=== PATIENT | female | born 1980 | race Caucasian/White ===

== ENCOUNTER 2021-06-27 14:48 | Inpatient (IN) | payer OTHER, SELFPAY ==
[2021-06-27] VITALS (57 sets, daily range): BP systolic 114–172; BP diastolic 51–106; PULSE 64–99; RESP 18; TEMP 36.4–36.9; BMI 42.6
--- NOTE | 2021-06-27 09:46 | OBADM ---
This patient, Ambreen Espitia, admitted to the OB room Labor/Delivery/Recovery 104 for observation of elevated bp's during NST in office. Patient/family oriented to hospital policies and general routines including ID bracelet, bed and alarms, visiting hours, pain management, procedures, bathroom and other care routines, personal items, smoking policy, room service/diet, and visiting hours. Patient/Family are encouraged to report perceived risks to care and to ask questions if they do not understand what they are told or what they should do.
[2021-06-27 10:24] LABS: Basophils Percent Auto 0.3 % (0.2-1.2); Eosinophils Absolute Auto 0.1 K/mm3 (0-0.3); Eosinophils Percent Auto 0.6 % (0-4.4); Hemoglobin 12.6 g/dL (12.0-15.0); Immature Granulocyte Absolute 0.08 K/mm3 (0.00-0.031); Immature Granulocyte Percent A 0.8 % (0-0.5); Lymphocytes Absolute Auto 1.09 K/mm3 (0.9-3.2); Lymphocytes Percent Auto 11.2 % (18.3-44.2); Mean Corpuscular HGB Conc 33.2 g/dl (32-36); Mean Corpuscular Hemoglobin 29.2 pg (26-34); Mean Platelet Volume 11.4 fl (7.4-10.4); Monocytes Absolute Auto 0.6 K/mm3 (0.1-0.6); Monocytes Percent Auto 6.2 % (2.6-8.5); Neutrophils Absolute Auto 7.8 K/mm3 (1.3-6.7); Neutrophils Percent Auto 80.9 % (45.5-73.1); Platelet Count Result 186 k/mm3 (150-375); Red Blood Count 4.32 M/mm3 (4.2-5.4); White Blood Count 9.7 K/mm3 (4.5-10.0)
[2021-06-27 10:36] LABS: Alanine Aminotransferase 11 U/L (4-35); Albumin Level 3.4 g/dL (3.5-5.1); Alkaline Phosphatase 103 U/L (38-126); Anion Gap 5 mmol/L (8-16); Aspartate Amino Transferase 20 U/L (14-36); Bilirubin,Total 0.2 mg/dL (0.2-1.3); Blood Urea Nitrogen 7 mg/dL (7-17); Calcium 8.6 mg/dL (8.4-10.2); Carbon Dioxide 18 mmol/L (22-30); Chloride 112 mmol/L (98-107); Estimated Glomerular Filt Rate > 60; Glucose 83 mg/dL (65-110); Potassium 4.2 mmol/L (3.4-5.0); Sodium 135 mmol/L (137-145)
[2021-06-27 10:41] LABS: Add Urine Microscopic? YES; Appearance Urine Cloudy (Clear); Bacteria Urine Trace /hpf; Bilirubin Urine Negative (Negative); Blood Urine Negative (Negative); Color Urine Yellow (Yellow); Glucose Urine UA Negative (Negative); Ketones Urine Trace mg/dL (Negative); Leukocyte Esterase Ur Trace LEU/UL (NEGATIVE); Nitrate Urine Negative (Negative); Protein Urine 1+ mg/dL (Negative); RBC Urine 0-2 /hpf (0-2); Specific Grav Ur 1.026 (1.001-1.035); Squamous Epithelial Cell Urine Many /hpf (Few); Urobilinogen Urine Negative mg/dL (<2.0); WBC Urine 0-3 /hpf (0-3)
--- NOTE | 2021-06-27 11:06 | PC.NURSE ---
Lab called, awaiting urine p/c ratio results to be able to call MD for further orders. Lab states results should be released soon.
[2021-06-27 11:09] LABS: Creatinine Urine 169.6 mg/dL; Total Protein Urine Random 15 mg/dL; Ur Ttl Prot Creatinine Ratio 0.09 mg/mg (0-0.20)
[2021-06-27] MEDS: NIFEdipine 30 MG TAB.ER.24 PO (11:29)
[2021-06-27] MEDS: LABETALOL HCL 100 MG TABLET 200 MG PO ×2 (13:10→20:43)
[2021-06-27 15:57] LABS: Basophils Percent Auto 0.2 % (0.2-1.2); Eosinophils Absolute Auto 0.1 K/mm3 (0-0.3); Eosinophils Percent Auto 0.5 % (0-4.4); Hematocrit 37.8 % (37.0-47.0); Hemoglobin 12.4 g/dL (12.0-15.0); Immature Granulocyte Absolute 0.09 K/mm3 (0.00-0.031); Immature Granulocyte Percent A 0.9 % (0-0.5); Lymphocytes Absolute Auto 1.04 K/mm3 (0.9-3.2); Lymphocytes Percent Auto 10.6 % (18.3-44.2); Mean Corpuscular HGB Conc 32.8 g/dl (32-36); Mean Corpuscular Hemoglobin 29.3 pg (26-34); Mean Corpuscular Volume 89.4 fl (80-100); Mean Platelet Volume 11.3 fl (7.4-10.4); Monocytes Absolute Auto 0.5 K/mm3 (0.1-0.6); Monocytes Percent Auto 4.7 % (2.6-8.5); Neutrophils Absolute Auto 8.1 K/mm3 (1.3-6.7); Neutrophils Percent Auto 83.1 % (45.5-73.1); Platelet Count Result 170 k/mm3 (150-375); Red Blood Count 4.23 M/mm3 (4.2-5.4); Red Cell Distribution Width 14.3 % (11.5-14.5); White Blood Count 9.8 K/mm3 (4.5-10.0)
[2021-06-27] MEDS: DINOPROSTONE 10 MG VAG INSERT VAGINAL (16:02)
--- NOTE | 2021-06-27 16:16 | LDADM ---
This patient, Ambreen Espitia, was admitted to Labor/Delivery/Recovery 104 on 06/27/21 at 14:48. Plans for labor, pain management and were discussed with patient. Patient/family oriented to hospital policies and general routines including ID bracelet, bed and alarms, visiting hours, pain management, procedures, bathroom and other care routines, personal items, smoking policy, room service/diet and guest tray routines, security routines, and visiting hours. Patient/Family are encouraged to report perceived risks to care and to ask questions if they do not understand what they are told or what they should do. See OBIX for further documentation.
[2021-06-27 18:13] LABS: Glucose Point of Care 93 mg/dl (65-105)
[2021-06-27 22:55] LABS: Glucose Point of Care 98 mg/dl (65-105)
[2021-06-28] VITALS (72 sets, daily range): BP systolic 112–157; BP diastolic 49–107; PULSE 66–96; TEMP 36.2–36.6; O2SAT 100
[2021-06-28] MEDS: LABETALOL HCL 100 MG TABLET 200 MG PO ×4 (02:52→21:45)
[2021-06-28 03:08] LABS: Glucose Point of Care 79 mg/dl (65-105)
[2021-06-28] MEDS: OXYTOCIN 30 UNITS/NS 500 ML 30 UNITS/500 ML BAG IV CONT (04:41)
[2021-06-28] MEDS: LACTATED RINGERS 1,000 ML 125 ML IV CONT ×3 (04:41→23:18)
[2021-06-28] MEDS: AMPICILLIN 2 GM/NS 100 ML 2 GM/100 ML BAG IVPB (04:41)
[2021-06-28 06:54] LABS: Glucose Point of Care 103 mg/dl (65-105)
--- NOTE | 2021-06-28 07:31 | WPDOBADMIT ---
Obstetrics - Admit Note Admission Note: record reviewed. No pertinent additions to the history and/or any subsequent changes in the physical findings that are not consistent with the expected course of the were found. Additions to the history and/or subsequent changes in the physical findings follow. Here yesterday from NST where BP noted to be elevated. No PIH Sx. BP stable on Labetalol 200 q 6. Cervadil last pm. Now Pitocin per protocol. Cervix FT/80/-3 unable to AROM. Will continue MIL.
[2021-06-28] MEDS: AMPICILLIN 1 GM/NS 50 ML 1 GM/50 ML BAG IVPB ×4 (09:29→22:11)
[2021-06-28 12:16] LABS: Glucose Point of Care 94 mg/dl (65-105)
[2021-06-28 12:35] LABS: Rapid Plasma Reagin Non-Reactive (NonReactive)
[2021-06-28 16:49] LABS: Glucose Point of Care 87 mg/dl (65-105)
[2021-06-28 18:17] LABS: Glucose Point of Care 57 mg/dl (65-105)
--- NOTE | 2021-06-28 21:13 | PM.OBPNLAB ---
Pain Control Date/time seen: 06/28/21 21:13 AROm clear fluid /-2
[2021-06-28 22:18] LABS: Glucose Point of Care 137 mg/dl (65-105)
[2021-06-28 23:23] LABS: Glucose Point of Care 111 mg/dl (65-105)
[2021-06-29] VITALS (71 sets, daily range): BP systolic 124–171; BP diastolic 61–101; PULSE 63–111; RESP 15–18; TEMP 36.5–37.1; O2SAT 85–100
[2021-06-29] MEDS: INSULIN HUMAN REGULAR (*BKC) 100 UNITS in SODIUM CHLORIDE 0.9% IV 99 ML IV CONT (00:20)
[2021-06-29 00:44] LABS: Glucose Point of Care 88 mg/dl (65-105)
[2021-06-29 01:38] LABS: Glucose Point of Care 87 mg/dl (65-105)
[2021-06-29] MEDS: miSOPROStol 200 MCG TABLET 800 MCG (03:40)
--- NOTE | 2021-06-29 03:47 | P.PCNOB_ITS ---
OB - Delivery Note Procedure Delivery date: 06/29/21 Procedure: events: Gestational Diabetes, Induced HTN and Labor Induction Induction method: AROM and per pitocin protocol Delivery monitor: external FHT, external uterine and internal uterine Route of delivery: Laceration Description: None Quantitative Blood Loss (ml): 300 Anesthesia type: Epidural Disposition: floor [place] Baby Date of : 06/29/21 Time of : 03:08 Weeks of gestation at delivery: 37 Infant gender: Male Weight (pounds): 7 Weight (ounces): 1 presentation: vertex Placenta delivery description: Spontaneous cord vessel description: 3 Vessels, Nuchal Cord (x2) and True Knot score one minute: 8 score five minutes: 9 Narrative: nurse delivery of fetus, present for placenta delivery. cytotec 800 mcg rectal given.
[2021-06-29] MEDS: OXYTOCIN 30 UNITS/NS 500 ML 30 UNITS/500 ML BAG 125 UNITS IV CONT (03:53)
[2021-06-29] MEDS: WITCH HAZEL 40 PADS 1 PAD TOPICAL (06:37)
[2021-06-29] MEDS: LABETALOL HCL 100 MG TABLET 200 MG PO ×3 (06:37→19:54)
[2021-06-29] MEDS: BENZOCAINE 20% AER SPR (*SP) 56 GM CAN 1 SPRAY TOPICAL (06:37)
[2021-06-29] MEDS: LEVOTHYROXINE SODIUM 125 MCG TABLET PO (07:41)
--- NOTE | 2021-06-29 07:59 | OBPPTRN ---
Patient transferred to post room # 291 via wheelchair. Support person present and in open crib. Oriented to unit, room, information board, rooming in, admission packet and security measures. Patient verbalizes understanding.PT received such instructions per one to one discussion, mom baby care guide and demonstration. PT and spouse both received instructions and education for this shift and demonstrated no barriers to learning.
[2021-06-29] MEDS: MULTIVIT/MIN/PREN/FOL AC/IRON TABLET 1 TAB PO (10:04)
[2021-06-29] MEDS: DOCUSATE SODIUM 100 MG CAPSULE PO ×2 (10:04→19:56)
[2021-06-30] VITALS (10 sets, daily range): BP systolic 109–135; BP diastolic 67–80; PULSE 64–88; RESP 14–18; TEMP 36.4–36.7; O2SAT 97–99
[2021-06-30] MEDS: LABETALOL HCL 100 MG TABLET 200 MG PO ×3 (02:16→21:35)
[2021-06-30 05:42] LABS: Hematocrit 34.6 % (37.0-47.0)
--- NOTE | 2021-06-30 07:30 | PC.NURSE ---
PT introductions made and plan of care discussed per post , pain management, breast feeding, daily care activities. PT verbalized understanding of such care. PT received instructions this shift per one to one discussion, mom baby care guide, and demonstration. PT shows no barriers to learning and both patient and spouse were recipients of such instructions. PT verbalized understanding of such care.
[2021-06-30] MEDS: DOCUSATE SODIUM 100 MG CAPSULE PO ×2 (08:35→17:26)
[2021-06-30] MEDS: MULTIVIT/MIN/PREN/FOL AC/IRON TABLET 1 TAB PO (08:36)
[2021-06-30] MEDS: LEVOTHYROXINE SODIUM 125 MCG TABLET PO (08:36)
[2021-06-30] MEDS: LANOLIN (LANSINOH) 7.5 GM CREAM 1 APPLIC TOPICAL (08:37)
--- NOTE | 2021-06-30 09:40 | PC.NURSE ---
Mother called out for assist with feeding, reporting is sleepy and not waking for feeding. Demonstrated stimulation techniques to wake infant for feeding. Assisted with infant to breast. Infant is able to freely thrust tongue past gum ridge and flange both lips. Skin is intact, redness and small blisters noted noted. Reviewed infant feeding cues, frequencies, duration of feedings, feeding elimination flow sheet, and signs of adequate intake. Reviewed positioning/alignment in cross cradle, holding breast in ?U? hold and guided asymmetrical latch on. Discussed rational for each. Infant able to latch correctly. nursed eagerly, with steady draws and frequent swallowing noted. Suggested mother stimulate while feeding to increase stimulation, increase intake and to assist with maintaining deep latch. Reviewed signs of a correct latch, effective nursing and suck swallow ratio. would slip to shallow latch, mother reports tenderness. Demonstrated how to adjust latch more deeply while feeding. Mother reports she can feel change in latch and has no tenderness. Nipple care reviewed of lanolin after feedings, warm compresses as needed. Mother switched to cradle position. Suggested mother continue to hold breast while feeding to assist with maintaining deep latch. Instructed mother to call out for RN assistance if she is unable to latch for feeding or she has discomfort with nursing.
--- NOTE | 2021-06-30 09:48 | WPDANLDPN2 ---
Anes-Prog Note L&D Date/Time: 06/30/21 09:48 Comfortable throughout: labor and delivery Neuraxial method: epidural Epidural/Spinal procedure site: clean & non-tender Neuro status: Neuro function grossly intact. Cardiovascular status: normal Respiratory status: normal Airway patency: baseline Mental status: baseline Post-Op hydration status: normal Vital Signs: Last Vital Signs Temp 36.6 C 06/30/21 07:50 Pulse 78 06/30/21 08:37 Resp 16 06/30/21 07:50 BP 109/72 06/30/21 07:50 Pulse Ox 98 06/30/21 07:50 Pain score (VAS): 0 I/O: Intake & Output 06/29/21 06/30/21 06/30/21 23:59 07:59 15:59 Intake Total 500 350 Output Total 1400 700 600 Balance -900 -350 -600 Post-procedural complaints: none Patient feedback: Patient satisfied with anesthetic care.
--- NOTE | 2021-06-30 15:06 | PM.OBPNVD ---
OB - PN: Subj Subjective Date/time seen: 06/30/21 15:06 doing well no complaints OB - PN: Obj Data Labs CBC & Chem 7: 06/30/21 04:23 06/27/21 10:12 Labs: Laboratory Results - last 24 hr 06/30/21 04:23 Hgb 11.0 L Hct 34.6 L OB - PN A/P Assessment and Plan (1) (normal spontaneous vaginal delivery): Code(s): O80 - Encounter for full-term uncomplicated delivery Status: Acute Assessment and Plan: continue with pp care. Time Spent With Patient Time: Total time spent is greater than 50% in coordination of care (as documented) at patient's floor/unit and/or counseling patient: Exam Narrative: ff below umbilicus
[2021-07-01 01:35] VITALS: BP 146/90; PULSE 73
[2021-07-01 05:20] VITALS: BP 136/84; PULSE 76
[2021-07-01 08:50] VITALS: BP 142/93; PULSE 75; RESP 16; TEMP 36.8; O2SAT 97
--- NOTE | 2021-07-01 09:15 | PC.NURSE ---
Observed mother is able to independently latch with appropriate positioning/alignment. She denies any nipple discomfort, is feeding as required and waking infant to feed if needed. has had at least 8 effective feedings in the past 24 hours, and is currently meeting outcomes for weight, output, jaundice and feeding frequencies. Mother states she feels confident to continue effective at home. Reviewed transition to breast milk, signs of adequate intake, and engorgement/relief. Instructed to call ICP if intake/output less than required. Reviewed regular medications mother is taking. Information provided per Sara. Reviewed community resources on the [facility] website and in the Mom/Baby guide. Information on outpatient services provided. Mother has no further questions at this time.
[2021-07-01 09:30] VITALS: PULSE 72; RESP 16; O2SAT 97
[2021-07-01] MEDS: DOCUSATE SODIUM 100 MG CAPSULE PO (09:30)
[2021-07-01] MEDS: LABETALOL HCL 100 MG TABLET 200 MG PO (09:30)
[2021-07-01] MEDS: MULTIVIT/MIN/PREN/FOL AC/IRON TABLET 1 TAB PO (09:30)
[2021-07-01] MEDS: LEVOTHYROXINE SODIUM 125 MCG TABLET PO (09:30)
--- NOTE | 2021-07-01 12:01 | PM.OBPNVD ---
OB - PN: Subj Subjective Date/time seen: 07/01/21 12:01 doing well no complaints OB - PN: Obj Data Labs CBC & Chem 7: 06/30/21 04:23 06/27/21 10:12 OB - PN A/P Assessment and Plan (1) (normal spontaneous vaginal delivery): Code(s): O80 - Encounter for full-term uncomplicated delivery Status: Acute Assessment and Plan: d/c home,PIH continue with labetalol follow up in 1 week for bp check. Time Spent With Patient Time: Total time spent is greater than 50% in coordination of care (as documented) at patient's floor/unit and/or counseling patient: Exam Narrative: ff fundus
[2021-07-01 15:48] VITALS: BP 118/66; PULSE 67; RESP 16; TEMP 36.7; O2SAT 99
--- NOTE | 2021-09-05 12:23 | PM.OBDSVD ---
DS: Admitting Diagnosis Discharge Date 07/01/21 Admitting Diagnosis induction of labor OB - DS: Summary OB Procedures : None OB Procedures Intrapartum: Spontaneous Vag Delivery OB Procedures: : None Time Spent with Patient Time attestation: Total time spent providing and/or coordinating discharge services: DS: Data Data Completed and Pending Completed studies during hospitalization: Pending at discharge 06/29/21 06:56 Surgical [PTH] Routine Discharge Plan Discharge Attending physician on discharge: Husam Estes Consulting providers: Nathaly Dinh Discharging Clinician: Husam Estes Patient Disposition: Home, Self-Care Activity: may shower and pelvic rest Diet: regular Discharge Instructions: Education: Mom and Baby Guide Given to: Mother Follow-Up: Call your delivering provider's office for an appointment to be seen in: 1 Week Mom and baby should come to the [facility] for the follow-up appointment. Appointment Date/Time: Friday, July 02, 2021 at 9:00 am What to expect at your follow-up visit: Blood Pressure Check Physical Assessment Call [phone] if you are unable to keep your appointment time. BREAST CARE: * Wear a snug supportive bra. * For engorgement discomfort: Breast Feeding: * Apply warm moist washcloths * Express milk as needed to relieve engorgement * Wear loose clothing * For sore nipples: * Identify correct latch-on * Apply warm moist washcloths before and after nursing * Air dry nipples after nursing * May apply Lansinoh cream to nipples EPISIOTOMY/PERINEAL CARE: * Until bleeding stops, use your evans bottle after urinating * Change your pad frequently throughout the day * You may take sitz baths several times a day (fill your bathtub with warm water and soak for 20 minutes.) Do NOT bathe in the water * No tub baths until seen by your physician - You may shower ACTIVITY: * Rest as much as possible. * Do not exercise or lift anything heavier than your baby (such as laundry or other children.) * Avoid stairs or driving as much as possible. * Do not put anything into the vagina. No douching, tampons, or sexual activity until seen by physician. NOTIFY PHYSICIAN IF YOU HAVE ANY QUESTIONS OR IF ANY OF THE FOLLOWING SYMPTOMS OCCUR: * If your Vaginal area becomes red, swollen, or more painful than what you have experienced in the hospital. * If your vaginal bleeding becomes foul smelling. * If your vaginal bleeding becomes more heavy than a period or if your bleeding changes from pink to bright red. However, you may pass an occasional walnut-sized clot once or twice for the first week . * If you experience a sharp, shooting pain in your calves. * If you discover a hard, reddened area on your breast or if you experience flu-like symptoms. DIET: * Eat regular, well-balanced meals. * Drink plenty of fluids daily. If , drink to thirst. Patient Instructions: Vaginal Delivery (DC) Stand Alone Forms: General Discharge Information Follow-up/Referrals: Husam Estes MD [Physician] - Discharge Medications: New labetalol 100 mg Tablet 200 mg PO BID Qty: 60 RF: 1 Continued levothyroxine 125 mcg Tablet 125 mcg PO DAILY RF: 0 ergocalciferol (vitamin D2) [Vitamin D2] 1,250 mcg (50,000 unit) Capsule 1,250 mcg PO WEEKLY RF: 0 PNV cmb#[id number]-ferrous fumarate-FA [] 28 mg iron- 800 mcg Tablet 1 tablet PO DAILY RF: 0 albuterol sulfate [ProAir HFA] 90 mcg/actuation Hfa Aerosol Inhaler 2 puff INHALATION QID PRN (Reason: Wheezing) RF: 0 Discontinued Humulin N NPH U-100 Insulin 100 unit/mL Suspension 32 unit SUBCUT HS RF: 0 Date of admission: 06/27/21 14:48 Primary Care Provider: KjEliel Admitting Provider: Husam Estes Attending physician on admission: Dinora
== END 2021-07-01 14:15 | disposition home or self-care (01) | DRG 807 ==
LOC: ANHOBOP 14:49 → ANHOBPP 14:52 → ANHLDR 15:58 → ANHOB2 06-29 08:04
PROVIDERS: Admitting Provider Obstetrics & Gynecology; PCP Family Medicine; Visit Provider Obstetrics & Gynecology
DX: O24.429 Gestational diabetes mellitus in childbirth, unspecified control (principal); Z37.0 Single live birth; O13.4 Gestational [pregnancy-induced] hypertension without significant proteinuria, complicating childbirth; O69.1XX0 Labor and delivery complicated by cord around neck, with compression, not applicable or unspecified; O99.824 Streptococcus B carrier state complicating childbirth; Z3A.37 37 weeks gestation of pregnancy
CPT/HCPCS: 36415; 80053; 81001; 82570; 82948; 84156; 84550; 85014; 85018; 85025; 86592; 86850; 86900; 86901; 87086; 88307; A9270; J0290; J1815; J2590; J2795; J7120